=== PATIENT | male | born 2000 | race Caucasian/White ===

== ENCOUNTER 2019-01-20 19:00 | Emergency (ER) | payer OTHER ==
[2019-01-20] MEDS ORDERED: NS 1,000 ML IV ONE (19:12)
--- NOTE | 2019-01-20 19:21 | EDPHY ---
HPI/HX/ROS/PE/MDM Narrative: CHIEF COMPLAINT: Chest pain HPI: This patient is a generally healthy 18 year old male. He complains of chest pain noted after waking around 9:00 this morning. This feels like pressure and is localized to his upper left pectoral muscle. The sensation occasionally radiates to his shoulder, back, and upper arm. Nothing makes it better or worse. He endorses clammy skin and cold sweats for the past couple hours. Endorses recent stress. He denies any abdominal pain. Denies any stimulant medications. Endorses marijuana consumption. No alcohol or illicit drug use. He denies any recent unusual activities, trauma, or illness. REVIEW OF SYSTEMS: A comprehensive 10 system review of systems is otherwise negative aside from elements mentioned in the history of present illness and medical decision making. PMH: Jaw surgery SOCIAL HISTORY: Endorses marijuana use. Student. Single. PHYSICAL EXAM: General:Patient is alert, in no acute distress. Patient appears somewhat anxious, hyperactive. ENT:Eyes are normal to inspection. ENT inspection normal. Neck: Normal inspection. Full range of motion. Respiratory:No respiratory distress. Breath sounds normal bilaterally. Cardiovascular: Tachycardic rate and regular rhythm. Strong peripheral pulses. Normal cap refill. Abdomen:The abdomen is nontender to palpation. There are no peritoneal signs. There are normal bowel sounds. Back: Normal to inspection. No tenderness to palpation. Skin: Normal color. No rash. Warm and dry. Extremities: Normal appearance. Full range of motion. Neuro: Oriented x3. Normal motor function. Normal sensory function. ED Course: 18 year old male presents with left-sided chest discomfort which began this morning upon waking. Exam is largely unremarkable though the patient is rather anxious-appearing. Plan for EKG, chest x-ray, labs including CBC, chemistries, POC troponin. Plan to administer 1mg IV ativan and 1L IV NS for symptom relief. 19:19 EKG was ordered and interpreted by myself. Please see [facility] [employer] [facility] for official reading. Reviewed laboratory studies. These are largely unremarkable. Chest x-ray negative for acute processes. 20:20 Reassessed. Discussed imaging and laboratory results. The patient is greatly relieved by his negative cardiac workup tonight. Plan to administer 30mg IV Toradol for additional pain relief. Plan for repeat EKG. If he feels well following Toradol administration, plan to discharge home in good condition with referral to cardiology. Follow up and return precautions discussed. He is comfortable with this plan. 20:35 Repeat EKG was ordered and interpreted by myself. Please see [facility] [employer] [facility] for official reading. MDM: This is a young healthy male with atypical chest pain. Workup is negative for signs of acute coronary syndrome, pericarditis, thoracic aortic dissection. The patient has no PE risk factors and his chest pain is not pleuritic nor does he complain of shortness of breath. He responded well to IV fluids and Toradol , but the most significant improvement in symptoms came after IV Ativan. The patient denies stimulant use, but I am somewhat suspicious of this vs. a possible anxiety disorder. He was observed in the emergency department for several hours with steady improvement in his symptoms and he would like to go home. His vital signs have normalized. We discussed need for close follow-up as an outpatient. - Data Points Imaging Results: Imaging Impressions Chest X-Ray 01/20/19 19:12 Impression: No acute pulmonary disease. Imaging: I viewed and interpreted images myself Laboratory Results: Laboratory Results 01/20/19 19:20 01/20/19 19:20 01/20/19 01/20/19 01/20/19 19:26 19:20 19:20 WBC 6.91 10^3/uL 10^3/uL (3.80-9.50) RBC 5.42 10^6/uL 10^6/uL (4.40-6.38) Hgb 16.8 g/dL g/dL (13.7-17.5) Hct 47.2 % % (40.0-51.0) MCV 87.1 fL fL (81.5-99.8) MCH 31.0 pg pg (27.9-34.1) MCHC 35.6 g/dL g/dL (32.4-36.7) RDW 11.9 % % (11.5-15.2) Plt Count 253 10^3/uL 10^3/uL (150-400) MPV 8.6 fL L fL (8.7-11.7) Neut % (Auto) 64.6 % % (39.3-74.2) Lymph % (Auto) 28.1 % % (15.0-45.0) [place] % (Auto) 6.1 % % (4.5-13.0) Eos % (Auto) 0.6 % % (0.6-7.6) Baso % (Auto) 0.3 % % (0.3-1.7) Nucleat RBC Rel Count 0.0 % % (0.0-0.2) Absolute Neuts (auto) 4.47 10^3/uL 10^3/uL (1.70-6.50) Absolute Lymphs (auto) 1.94 10^3/uL 10^3/uL (1.00-3.00) Absolute Monos (auto) 0.42 10^3/uL 10^3/uL (0.30-0.80) Absolute Eos (auto) 0.04 10^3/uL 10^3/uL (0.03-0.40) Absolute Basos (auto) 0.02 10^3/uL 10^3/uL (0.02-0.10) Absolute Nucleated RBC 0.00 10^3/uL 10^3/uL (0-0.01) Immature Gran % 0.3 % % (0.0-1.1) Immature Gran # 0.02 10^3/uL 10^3/uL (0.00-0.10) Sodium 139 mEq/L mEq/L (135-145) Potassium 3.7 mEq/L mEq/L (3.5-5.2) Chloride 103 mEq/L mEq/L (97-110) Carbon Dioxide 20 mEq/l L mEq/l (22-31) Anion Gap 16 mEq/L H mEq/L (6-14) BUN 16 mg/dL mg/dL (7-23) Creatinine 1.1 mg/dL mg/dL (0.7-1.3) Estimated GFR > 60 Glucose 151 mg/dL H mg/dL (70-100) Calcium 9.6 mg/dL mg/dL (8.5-10.4) POC Troponin I 0.00 ng/mL ng/mL (0.00-0.08) Medications Given: Discontinued Medications Sodium Chloride (Ns) 1,000 mls @ 0 mls/hr IV EDNOW ONE; Wide Open PRN Reason: Protocol Stop: 01/20/19 19:13 Last Admin: 01/20/19 19:27 Dose: 1,000 mls Ketorolac Tromethamine (Toradol) 30 mg IVP EDNOW ONE Stop: 01/20/19 20:29 Last Admin: 01/20/19 20:35 Dose: 30 mg Lorazepam (Ativan Injection) 1 mg IVP EDNOW ONE Stop: 01/20/19 19:28 Last Admin: 01/20/19 19:28 Dose: 1 mg Point of Care Test Results: Chemistry 01/20/19 19:26 POC Troponin I 0.00 ng/mL ng/mL (0.00-0.08) General Time Seen by Provider: 01/20/19 19:11 Initial Vital Signs: Initial Vital Signs Temperature (C) 36.5 C 01/20/19 19:02 Heart Rate 124 H 01/20/19 19:02 Respiratory Rate 16 01/20/19 19:02 Blood Pressure 137/118 H 01/20/19 19:02 O2 Sat (%) 96 01/20/19 19:02 O2 Delivery Mode Room Air Allergies/Adverse Reactions: No Known Allergies Allergy (Unverified 01/20/19 19:02) Home Medications: Medication Instructions Recorded NK [No Known Home Meds] 01/20/19 Departure - Departure Disposition: Home, Routine, Self-Care Clinical Impression: Chest pain Condition: Good Instructions: Chest Pain (ED) Additional Instructions: Follow-up with your primary doctor within 2-3 days. Follow up with a car barn laborer for further testing. We have referred you to our car barn laborer cloud operations engineer. Return to the Emergency Department for fever, chest pain, shortness of breath, increasing pain or other worsening of condition. Referrals: Buster Louis MD [Medical Doctor] - As per Instructions Isidoro Dutton DO [Doctor of Osteopathy] - As per Instructions Report Scribed for: Sam Escalona Report Scribed by: Edwige Rider Date of Report: 01/20/19 Time of Report: 20:31 Physician Review and Approval Statement: Portions of this note were transcribed by an ED scribe. I personally performed the history, physical exam, and medical decision making; and confirm the accuracy of the information in the transcribed note.
[2019-01-20] MEDS ORDERED: LORazepam 2 MG/ML INJ IVP ONE (19:27)
[2019-01-20] MEDS ORDERED: LORazepam 2 MG/ML INJ ONE (19:27)
[2019-01-20 19:31] LABS: PLATELET COUNT 253 10^3/uL (150-400)
[2019-01-20 20:22] VITALS: BP 119/74
[2019-01-20] MEDS ORDERED: KETOROLAC 30 MG/1 ML SDV IVP ONE (20:28)
--- NOTE | 2019-01-22 15:16 | CPEKG ---
Test Reason : OPEN Blood Pressure : / mmHG Vent. Rate : 118 BPM Atrial Rate : 117 BPM P-R Int : 143 ms QRS Dur : 103 ms QT Int : 312 ms P-R-T Axes : 081 091 -22 degrees QTc Int : 438 ms Sinus tachycardia Borderline right axis deviation Nonspecific T abnormalities, inferior leads Confirmed by Sam Escalona ([id number]) on 01/22/2019 3:16:22 PM Referred By: Sam Escalona Confirmed By:Sam Escaloan
--- NOTE | 2019-01-22 15:16 | CPEKG ---
Test Reason : OPEN Blood Pressure : / mmHG Vent. Rate : 089 BPM Atrial Rate : 089 BPM P-R Int : 164 ms QRS Dur : 096 ms QT Int : 343 ms P-R-T Axes : 079 084 049 degrees QTc Int : [address] elev, probable normal early repol pattern Confirmed by Sam Escalona ([id number]) on 01/22/2019 3:16:23 PM Referred By: Sam Escalona Confirmed By:Sam Escalona
== END 2019-01-20 21:01 | disposition home or self-care (01) ==
DX: R07.9 Chest pain, unspecified (principal); E86.9 Volume depletion, unspecified
CPT/HCPCS: 84484-ER; 96374; J1885; J2060